=== PATIENT | male | born 1980 | race African-American/Black ===

== ENCOUNTER 2017-09-18 11:09 | Inpatient (IN) | payer SELFPAY ==
[~2017-09-18] VITALS: Ht 188 cm; Wt 94.3 kg
[2017-09-18 12:17] LABS: BASOPHILS % (AUTO) 0.7 % (0.0-5.0); EOSINOPHILS % (AUTO) 2.4 % (0.0-8.0); HEMATOCRIT 47.6 % (42-54); LYMPHOCYTES % (AUTO) 15.6 % (21.0-51.0); MEAN CORPUSCULAR HEMOGLOBIN 26.3 pg (27.0-33.0); MEAN CORPUSCULAR HGB CONC 32.6 g/dL (32.0-36.0); MEAN CORPUSCULAR VOLUME 80.6 fL (79-99); MONOCYTES % (AUTO) 7.3 % (3.0-13.0); PLATELET COUNT (AUTO) 226 K/uL (130-400); RED BLOOD CELL COUNT(AUTO) 5.91 MIL/uL (4.50-6.20); RED CELL DISTRIBUTION WIDTH 14.4 % (11.0-15.5); WHITE BLOOD COUNT (AUTO) 11.9 K/uL (4.8-10.8)
[2017-09-18 12:26] LABS: CREATININE 0.9 mg/dL (0.5-1.5); POTASSIUM 3.8 mmol/L (3.5-5.1)
[2017-09-18] MEDS ORDERED: HYOSCYAMINE SULFATE 0.125 MG TAB.SUBL SL ONE (12:26)
[2017-09-18] MEDS ORDERED: FAMOTIDINE/PF 20 MG/2 ML VIAL IV ONE (12:27)
[2017-09-18 12:48] LABS: ALBUMIN 3.1 g/dL (3.5-5.0); BILIRUBIN,TOTAL 0.3 mg/dL (0.2-1.0); TOTAL PROTEIN, SERUM 6.2 g/dL (6.0-8.3)
[2017-09-18 13:31] LABS: APPEARANCE,URINE CLEAR (CLEAR); BILIRUBIN,URINE NEGATIVE (NEGATIVE); COLOR,URINE YELLOW (YELLOW); GLUCOSE, URINE (UA) NEGATIVE (NEGATIVE); KETONES,URINE NEGATIVE (NEGATIVE); LEUKOCYTE ESTERASE ,URINE NEGATIVE (NEGATIVE); NITRATE,URINE NEGATIVE (NEGATIVE); OCCULT BLOOD,URINE NEGATIVE (NEGATIVE); PROTEIN,URINE NEGATIVE (NEGATIVE); UROBILINOGEN,URINE 0.2 mg/dL (0.2-1.0)
[2017-09-18 13:39] LABS: AMPHET/METH SCREEN,URINE NEGATIVE (NEGATIVE); BARBITURATE SCREEN, URINE NEGATIVE (NEGATIVE); BENZODIAZEPINES SCREEN,URINE POSITIVE (NEGATIVE); CANNABINOID SCREEN,URINE POSITIVE (NEGATIVE); COCAINE SCREEN,URINE NEGATIVE (NEGATIVE); OPIATE SCREEN,URINE NEGATIVE (NEGATIVE); PHENCYCLIDINE SCREEN,URINE NEGATIVE (NEGATIVE)
[2017-09-18] MEDS ORDERED: SODIUM CHLORIDE 0.9% 1000ML 1,000 ML IV ONE (14:30)
[2017-09-18] MEDS ORDERED: ACETAMINOPHEN EXTRA STRENGTH 500 MG TABLET PO PRN (15:45)
[2017-09-18] MEDS: SODIUM CHLORIDE 0.9% 1000ML 1,000 ML IV SCH ×2 (15:45→20:28)
[2017-09-18] MEDS ORDERED: ONDANSETRON HCL 4 MG/2 ML VIAL IVP PRN (15:45)
[2017-09-18] MEDS ORDERED: DESV50TA PO (16:08)
[2017-09-18] MEDS ORDERED: PALI9TAB PO (16:08)
[2017-09-18 16:19] VITALS: BP 126/86
[2017-09-18] MEDS ORDERED: TRAMADOL HCL 50 MG TABLET PO PRN (17:30)
[2017-09-18] MEDS ORDERED: FLU VACC QS2017-18 36MOS UP/PF 60 MCG/0.5 ML ML IM SCH (18:45)
[2017-09-18 19:43] VITALS: BP 121/73
[2017-09-18] MEDS: FAMOTIDINE 20MG TAB 20 MG TAB PO SCH (20:28)
[2017-09-18 23:06] VITALS: BP 109/68
[2017-09-19] MEDS ORDERED: HYDRALAZINE HCL 20 MG/ML VIAL IM PRN (00:45)
[2017-09-19] MEDS ORDERED: DIVA500T52 PO ×2 (03:09→03:15)
[2017-09-19] MEDS ORDERED: TRAZ-147 PO (03:15)
[2017-09-19] MEDS ORDERED: BENZ2TAB10 PO (03:17)
[2017-09-19] MEDS ORDERED: DESV50TA10 PO (03:18)
[2017-09-19] MEDS ORDERED: OLME1TAB7 PO (03:19)
[2017-09-19] MEDS ORDERED: PALI9TAB PO (03:21)
[2017-09-19 03:41] VITALS: BP 122/65
[2017-09-19] MEDS: SODIUM CHLORIDE 0.9% 1000ML 1,000 ML IV SCH (05:05)
[2017-09-19 06:13] LABS: MEAN CORPUSCULAR HEMOGLOBIN 26.9 pg (27.0-33.0); MEAN CORPUSCULAR HGB CONC 33.2 g/dL (32.0-36.0); PLATELET COUNT (AUTO) 209 K/uL (130-400); RED BLOOD CELL COUNT(AUTO) 5.06 MIL/uL (4.50-6.20); RED CELL DISTRIBUTION WIDTH 14.6 % (11.0-15.5); WHITE BLOOD COUNT (AUTO) 8.2 K/uL (4.8-10.8)
[2017-09-19 06:42] LABS: CREATININE 1.1 mg/dL (0.5-1.5); MAGNESIUM 1.8 mg/dL (1.80-2.40)
[2017-09-19 07:30] VITALS: BP 122/62
[2017-09-19 07:42] LABS: BASOPHILS % (MANUAL) 1 % (0-2); EOSINOPHILS % (MANUAL) 1 % (1-6); LYMPHOCYTES % (MANUAL) 23 % (22-44); MAN.DIFF COMMENT-IMPRESSION MANUAL DIFFERENTIAL; MONOCYTES % (MANUAL) 7 % (2-9); REACTIVE LYMPHOCYTES 4 % (0-0); SEGMENTED NEUTROPHILS % 64 % (40-70)
[2017-09-19 07:43] LABS: PLATELET MORPHOLOGY COMMENT ADEQUATE
[2017-09-19] MEDS: PALIPERIDONE 9 MG PO SCH (09:00)
[2017-09-19] MEDS: DESVENLAFAXINE SUCCINATE 50 MG PO SCH (09:00)
[2017-09-19] MEDS: FAMOTIDINE 20MG TAB 20 MG TAB PO SCH ×2 (09:30→20:56)
[2017-09-19 11:30] VITALS: BP 129/75
[2017-09-19] MEDS ORDERED: LACTULOSE 20 GM/30 ML UDCUP PO PRN (12:15)
[2017-09-19 15:30] VITALS: BP 129/75
[2017-09-19] MEDS: TRAZODONE HCL 100 MG TABLET PO SCH (17:56)
[2017-09-19 19:15] VITALS: BP 122/72
[2017-09-19] MEDS: BENZTROPINE MESYLATE 0.5 MG TAB PO SCH (20:56)
[2017-09-19 23:00] VITALS: BP 113/51
[2017-09-20] VITALS: BP 122/72
[2017-09-20 03:00] VITALS: BP 138/69
[2017-09-20] MEDS: SODIUM CHLORIDE 0.9% 1000ML 1,000 ML IV SCH ×5 (07:45→21:05)
[2017-09-20 08:28] LABS: ALBUMIN 2.8 g/dL (3.5-5.0); BILIRUBIN,TOTAL 0.4 mg/dL (0.2-1.0); CREATININE 1.2 mg/dL (0.5-1.5); TOTAL PROTEIN, SERUM 5.5 g/dL (6.0-8.3)
[2017-09-20] MEDS: DESVENLAFAXINE SUCCINATE 50 MG PO SCH (09:00)
[2017-09-20] MEDS: PALIPERIDONE 9 MG PO SCH (09:00)
[2017-09-20] MEDS: FAMOTIDINE 20MG TAB 20 MG TAB PO SCH ×2 (09:04→20:59)
[2017-09-20 09:16] VITALS: BP 115/71
[2017-09-20 11:00] VITALS: BP_SYST 115; BP_SYST 121; BP_DIAS 66; BP_DIAS 71
[2017-09-20 16:48] VITALS: BP 125/68
[2017-09-20] MEDS: TRAZODONE HCL 100 MG TABLET PO SCH (17:13)
[2017-09-20 20:00] VITALS: BP 122/74
[2017-09-20] MEDS: BENZTROPINE MESYLATE 0.5 MG TAB PO SCH (20:59)
[2017-09-21 04:00] VITALS: BP 123/70
[2017-09-21 07:00] VITALS: BP 126/69
[2017-09-21] MEDS: PALIPERIDONE 9 MG PO SCH (09:00)
[2017-09-21] MEDS: DESVENLAFAXINE SUCCINATE 50 MG PO SCH (09:00)
[2017-09-21] MEDS: SODIUM CHLORIDE 0.9% 1000ML 1,000 ML IV SCH ×2 (09:49→09:53)
[2017-09-21] MEDS: FAMOTIDINE 20MG TAB 20 MG TAB PO SCH (09:50)
[2017-09-21 12:00] VITALS: BP 126/88
[2017-09-21] MEDS: TRAZODONE HCL 100 MG TABLET PO SCH (17:00)
== END 2017-09-21 17:30 | disposition home or self-care (01) | DRG 558 ==
LOC: EDH 11:09 → EDHIP 11:10 → 4AH 15:46 → 3BH 18:03
PROVIDERS: ADMIT Family Medicine; ATTEND Family Medicine
PROC: 3E0234Z Introduction of Serum, Toxoid and Vaccine into Muscle, Percutaneous Approach (ICD-10-PCS; principal; 2017-09-18)
DX: M62.82 Rhabdomyolysis (principal); F20.0 Paranoid schizophrenia; R45.851 Suicidal ideations; F32.9 Major depressive disorder, single episode, unspecified; I10 Essential (primary) hypertension; G40.909 Epilepsy, unspecified, not intractable, without status epilepticus; F60.9 Personality disorder, unspecified; F12.10 Cannabis abuse, uncomplicated; Z23 Encounter for immunization
CPT/HCPCS: 36415; 71046; 74018; 80048; 80053; 80061; 80305; 81003; 82550; 83690; 83735; 84484; 85025; 93005; G0008; J3490; J7030; Q2038

== ENCOUNTER 2019-11-12 15:30 | Emergency (ER) | payer OTHER ==
[~2019-11-12 15:30] MED LIST: BENZ2TAB10 PO; DESV50TA PO; DIVA500T52 PO; OLME1TAB7 PO; PALI9TAB PO; TRAZ-187 PO
[2019-11-12] MEDS ORDERED: KETOROLAC TROMETHAMINE 60 MG/2 ML VIAL ONE (16:03)
[2019-11-12] MEDS ORDERED: TETANUS/DIPHTHERIA TOXOID [ADULT] 0.5 ML VIAL IM ONE (16:04)
== END 2019-11-12 16:36 | disposition home or self-care (01) ==
LOC: EDH 15:30
DX: S91.332A Puncture wound without foreign body, left foot, initial encounter (principal); I10 Essential (primary) hypertension; F32.9 Major depressive disorder, single episode, unspecified; F20.9 Schizophrenia, unspecified; Z72.0 Tobacco use; W26.8XXA Contact with other sharp object(s), not elsewhere classified, initial encounter; Y93.89 Activity, other specified; Y92.89 Other specified places as the place of occurrence of the external cause; Y99.8 Other external cause status
CPT/HCPCS: 73620; 90471; 90714; 96372; 99284; J1885

== ENCOUNTER 2020-03-04 07:38 | Inpatient (IN) | payer OTHER, SELFPAY ==
[~2020-03-04] VITALS: Ht 188 cm; Wt 95.3 kg
[2020-03-04 08:45] LABS: BASOPHILS % (AUTO) 0.2 % (0.0-5.0); EOSINOPHILS % (AUTO) 2.3 % (0.0-8.0); HEMATOCRIT 42.1 % (42-54); LYMPHOCYTES % (AUTO) 11.9 % (21.0-51.0); MEAN CORPUSCULAR HEMOGLOBIN 26.2 pg (27.0-33.0); MEAN CORPUSCULAR HGB CONC 32.3 g/dL (32.0-36.0); MEAN CORPUSCULAR VOLUME 81.1 fL (79-99); MONOCYTES % (AUTO) 9.7 % (3.0-13.0); NEUTROPHILS % (AUTO) 75.5 % (40.0-77.0); PLATELET COUNT (AUTO) 264 K/uL (130-400); RED BLOOD CELL COUNT(AUTO) 5.19 MIL/uL (4.50-6.20); RED CELL DISTRIBUTION WIDTH 13.5 % (11.0-15.5); WHITE BLOOD COUNT (AUTO) 9.7 K/uL (4.8-10.8)
[2020-03-04 09:08] LABS: ALBUMIN 3.8 g/dL (3.5-5.0); BILIRUBIN,TOTAL 0.7 mg/dL (0.2-1.0); CREATININE 0.9 mg/dL (0.5-1.5); INR 0.95 (0.85-1.15); PARTIAL THROMBOPLASTIN TIME 30.5 SEC (26.3-35.5); POTASSIUM 4.4 mmol/L (3.5-5.1); PROTHROMBIN TIME 10.3 SEC (9.6-11.6); TOTAL PROTEIN, SERUM 7.9 g/dL (6.0-8.3)
[2020-03-04 13:50] VITALS: BP 124/65
[2020-03-04] MEDS ORDERED: KETOROLAC TROMETHAMINE 15MG/ML IV SCH (14:30)
[2020-03-04] MEDS ORDERED: ONDANSETRON HCL 4 MG/2 ML VIAL IV PRN (14:45)
[2020-03-04] MEDS ORDERED: ACETAMINOPHEN 325 MG TAB PO PRN ×2 (14:45)
[2020-03-04] MEDS ORDERED: MORPHINE SULFATE 2 MG/ML 1ML SYG IV PRN (14:45)
[2020-03-04] MEDS ORDERED: PHARMACY COMMUNICATION MISC SCH (15:00)
[2020-03-04 15:37] LABS: HEMOGLOBIN A1C 5.9 % (4.0-6.0)
[2020-03-04 15:55] LABS: CHOLESTEROL 192 mg/dL (<200); HDL CHOLESTEROL 136 mg/dL (29-71); LDL DIRECT 109 mg/dL (0-99); MYOGLOBIN 99 ng/mL (10-92); TRIGLYCERIDES 47 mg/dL (30-200); TROPONIN I < 0.04 ng/mL (0.00-0.06)
[2020-03-04] MEDS ORDERED: DOXYCYCLINE 100MG+NS 250ML IV SCH (15:56)
[2020-03-04] MEDS ORDERED: ERGOCALCIFEROL (VITAMIN D2) 50,000 UNIT CAPSULE PO SCH (15:57)
[2020-03-04 15:58] LABS: CREATINE KINASE, TOTAL 785 U/L (21-232)
[2020-03-04] MEDS ORDERED: VASOPRESSIN 20 UNITS/NS 100ML IV SCH ×2 (16:30)
[2020-03-04] MEDS: ZINC SULFATE 220 CAPSULE PO SCH (16:49)
[2020-03-04] MEDS: ASCORBIC ACID 500 MG TAB PO SCH (16:50)
[2020-03-04 16:52] VITALS: BP 124/63
[2020-03-04] MEDS: METHYLPREDNISOLONE SOD SUCC 40MG/ML 1ML IVP SCH ×2 (16:54→21:40)
[2020-03-04] MEDS ORDERED: IOHEXOL-350 75 ML VIAL IV ONE ×2 (16:56→17:17)
[2020-03-04] MEDS: DOXYCYCLINE 100MG+NS 250ML 250 ML IV SCH (17:51)
[2020-03-04] MEDS: ENOXAPARIN SODIUM 40 MG/0.4 ML SYRINGE SQ SCH (17:57)
[2020-03-04 19:50] VITALS: BP 119/76
[2020-03-04] MEDS ORDERED: METOPROLOL TARTRATE 25 MG TAB PO SCH (21:00)
[2020-03-04] MEDS: FAMOTIDINE/PF 20 MG/2 ML VIAL IV SCH (21:41)
[2020-03-04] MEDS: BENZONATATE 100 MG CAPSULE PO SCH (21:41)
[2020-03-04] MEDS: ATORVASTATIN CALCIUM 10 MG TABLET PO SCH (21:41)
[2020-03-04 23:31] LABS: MYOGLOBIN 66 ng/mL (10-92); TROPONIN I < 0.04 ng/mL (0.00-0.06)
[2020-03-04 23:42] LABS: CREATINE KINASE, TOTAL 673 U/L (21-232)
[2020-03-04 23:49] VITALS: BP 136/78
[2020-03-05 04:05] VITALS: BP 116/79
[2020-03-05 08:04] LABS: ALBUMIN 3.3 g/dL (3.5-5.0); BILIRUBIN,TOTAL 0.4 mg/dL (0.2-1.0); CREATININE 0.9 mg/dL (0.5-1.5); CRP QUANTITATIVE 82.7 mg/L (0.00-9.0); TOTAL PROTEIN, SERUM 7.1 g/dL (6.0-8.3)
[2020-03-05 08:09] VITALS: BP 118/81
[2020-03-05 08:24] LABS: BASOPHILS % (AUTO) 0.2 % (0.0-5.0); EOSINOPHILS % (AUTO) 0.7 % (0.0-8.0); HEMATOCRIT 42.7 % (42-54); MEAN CORPUSCULAR HGB CONC 31.9 g/dL (32.0-36.0); MEAN CORPUSCULAR VOLUME 81.5 fL (79-99); MONOCYTES % (AUTO) 10.2 % (3.0-13.0); NEUTROPHILS % (AUTO) 75.6 % (40.0-77.0); PLATELET COUNT (AUTO) 267 K/uL (130-400); RED BLOOD CELL COUNT(AUTO) 5.24 MIL/uL (4.50-6.20); RED CELL DISTRIBUTION WIDTH 13.7 % (11.0-15.5); WHITE BLOOD COUNT (AUTO) 9.2 K/uL (4.8-10.8)
[2020-03-05 08:33] LABS: MYOGLOBIN 57 ng/mL (10-92); TROPONIN I < 0.04 ng/mL (0.00-0.06)
[2020-03-05 08:35] LABS: CREATINE KINASE, TOTAL 492 U/L (21-232)
[2020-03-05] MEDS: ZINC SULFATE 220 CAPSULE PO SCH (09:37)
[2020-03-05] MEDS: FAMOTIDINE/PF 20 MG/2 ML VIAL IV SCH ×2 (09:37→20:45)
[2020-03-05] MEDS: ENOXAPARIN SODIUM 40 MG/0.4 ML SYRINGE SQ SCH (09:37)
[2020-03-05] MEDS: ASCORBIC ACID 500 MG TAB PO SCH (09:37)
[2020-03-05] MEDS: BENZONATATE 100 MG CAPSULE PO SCH ×3 (09:37→20:46)
[2020-03-05] MEDS: METHYLPREDNISOLONE SOD SUCC 40MG/ML 1ML IVP SCH ×3 (09:37→20:46)
[2020-03-05 11:35] VITALS: BP 136/70
[2020-03-05] MEDS: DOXYCYCLINE 100MG+NS 250ML 250 ML IV SCH (15:55)
[2020-03-05 16:33] VITALS: BP 127/70
[2020-03-05 19:50] VITALS: BP 124/91
[2020-03-05] MEDS: ATORVASTATIN CALCIUM 10 MG TABLET PO SCH (20:46)
[2020-03-05 23:34] VITALS: BP 141/71
[2020-03-06] MEDS: DOXYCYCLINE 100MG+NS 250ML 250 ML IV SCH (03:35)
[2020-03-06 04:13] VITALS: BP 123/75
[2020-03-06 07:43] LABS: ALANINE AMINOTRANSFERASE 29 U/L (12-78); ALBUMIN 3.2 g/dL (3.5-5.0); ASPARTATE AMINOTRANSFERASE 18 U/L (10-37); BILIRUBIN,TOTAL 0.3 mg/dL (0.2-1.0); CARBON DIOXIDE 26 mmol/L (21-32); CHLORIDE 102 mmol/L (101-111); CREATININE 0.9 mg/dL (0.5-1.5); GLOMERULAR FILTR. RATE CALC 120 mL/min (>60); GLUCOSE,RANDOM 105 mg/dL (70-105); LACTATE DEHYDROGENASE 154 U/L (81-234); POTASSIUM 3.9 mmol/L (3.5-5.1); SODIUM SERUM 137 mmol/L (136-145); TOTAL PROTEIN, SERUM 7.3 g/dL (6.0-8.3); UREA NITROGEN, BLOOD 13 mg/dL (7-18)
[2020-03-06 08:26] VITALS: BP 108/69
[2020-03-06] MEDS: ZINC SULFATE 220 CAPSULE PO SCH (09:04)
[2020-03-06] MEDS: BENZONATATE 100 MG CAPSULE PO SCH ×2 (09:05→14:17)
[2020-03-06] MEDS: FAMOTIDINE/PF 20 MG/2 ML VIAL IV SCH (09:05)
[2020-03-06] MEDS: ASCORBIC ACID 500 MG TAB PO SCH (09:05)
[2020-03-06] MEDS: ENOXAPARIN SODIUM 40 MG/0.4 ML SYRINGE SQ SCH (09:05)
[2020-03-06] MEDS: METHYLPREDNISOLONE SOD SUCC 40MG/ML 1ML IVP SCH ×2 (09:05→14:16)
[2020-03-06 12:20] VITALS: BP 99/64
[2020-03-06] MEDS ORDERED: IBUP-2077 PO (12:39)
[2020-03-06] MEDS ORDERED: HYDR-4457 PO (12:39)
== END 2020-03-06 15:20 | disposition home or self-care (01) | DRG 314 ==
LOC: EDH 07:38 → EDHIP 07:39 → 3BH 14:41
PROVIDERS: ADMIT Hospitalist; ATTEND Hospitalist
DX: I30.9 Acute pericarditis, unspecified (principal); J18.9 Pneumonia, unspecified organism; F20.9 Schizophrenia, unspecified; I10 Essential (primary) hypertension; E11.9 Type 2 diabetes mellitus without complications; F17.210 Nicotine dependence, cigarettes, uncomplicated; F32.9 Major depressive disorder, single episode, unspecified; G40.909 Epilepsy, unspecified, not intractable, without status epilepticus; J45.909 Unspecified asthma, uncomplicated; Z20.828 Contact with and (suspected) exposure to other viral communicable diseases
CPT/HCPCS: 36415; 71045; 71275; 80053; 80061; 82550; 82728; 83036; 83615; 83874; 84145; 84484; 85025; 85378; 85610; 85730; 86140; 86850; 86900; 86901; 87426; 93005; 93306; 93356; G0378; J1650; J1885; J2920; J3490; Q9967; U0003

== ENCOUNTER 2020-07-26 12:58 | Emergency (ER) | payer SELFPAY ==
[~2020-07-26 12:58] MED LIST changes: -BENZ2TAB10 PO; -DESV50TA PO; -DIVA500T52 PO; +HYDR-4457 PO; +IBUP-2077 PO; -OLME1TAB7 PO; -PALI9TAB PO; -TRAZ-187 PO
[2020-07-26] MEDS ORDERED: LORAZEPAM 2 MG/ML 1 ML VIAL ONE (13:11)
[2020-07-26 13:21] LABS: BASOPHILS % (AUTO) 0.6 % (0.0-5.0); EOSINOPHILS % (AUTO) 5.9 % (0.0-8.0); HEMATOCRIT 43.1 % (42-54); LYMPHOCYTES % (AUTO) 30.7 % (21.0-51.0); MEAN CORPUSCULAR HEMOGLOBIN 26.5 pg (27.0-33.0); MEAN CORPUSCULAR HGB CONC 33.2 g/dL (32.0-36.0); MONOCYTES % (AUTO) 8.5 % (3.0-13.0); NEUTROPHILS % (AUTO) 54.1 % (40.0-77.0); PLATELET COUNT (AUTO) 306 K/uL (130-400); RED BLOOD CELL COUNT(AUTO) 5.39 MIL/uL (4.50-6.20); WHITE BLOOD COUNT (AUTO) 6.6 K/uL (4.8-10.8)
[2020-07-26 13:41] LABS: CREATININE 1.2 mg/dL (0.5-1.5); POTASSIUM 3.2 mmol/L (3.5-5.1)
[2020-07-26 13:45] LABS: ALBUMIN 3.8 g/dL (3.5-5.0); BILIRUBIN,TOTAL 0.4 mg/dL (0.2-1.0); TOTAL PROTEIN, SERUM 7.1 g/dL (6.0-8.3)
[2020-07-26] MEDS ORDERED: POTASSIUM BICARB/CIT AC 25 MEQ TABLET.EFF ONE (14:27)
== END 2020-07-26 14:48 | disposition home or self-care (01) ==
LOC: EDH 12:58
DX: F45.8 Other somatoform disorders (principal); F41.9 Anxiety disorder, unspecified; F32.9 Major depressive disorder, single episode, unspecified; Z72.0 Tobacco use
CPT/HCPCS: 36415; 71045; 80053; 84484; 85025; 93005; 96374; 99285; J2060

== ENCOUNTER 2020-08-08 11:33 | Emergency (ER) | payer OTHER ==
[2020-08-08 11:55] LABS: BASOPHILS % (AUTO) 0.7 % (0.0-5.0); EOSINOPHILS % (AUTO) 4.4 % (0.0-8.0); HEMATOCRIT 41.5 % (42-54); LYMPHOCYTES % (AUTO) 17.3 % (21.0-51.0); MEAN CORPUSCULAR HEMOGLOBIN 25.9 pg (27.0-33.0); MEAN CORPUSCULAR VOLUME 80.9 fL (79-99); MONOCYTES % (AUTO) 6.5 % (3.0-13.0); NEUTROPHILS % (AUTO) 70.7 % (40.0-77.0); PLATELET COUNT (AUTO) 277 K/uL (130-400); RED BLOOD CELL COUNT(AUTO) 5.13 MIL/uL (4.50-6.20); RED CELL DISTRIBUTION WIDTH 13.2 % (11.0-15.5); WHITE BLOOD COUNT (AUTO) 6.8 K/uL (4.8-10.8)
[2020-08-08 12:03] LABS: APPEARANCE,URINE Clear (CLEAR); BILIRUBIN,URINE Negative (NEGATIVE); COLOR,URINE Yellow (YELLOW); GLUCOSE, URINE (UA) Negative (NEGATIVE); KETONES,URINE Negative (NEGATIVE); LEUKOCYTE ESTERASE ,URINE Negative (NEGATIVE); NITRATE,URINE Negative (NEGATIVE); OCCULT BLOOD,URINE Trace (NEGATIVE); PROTEIN,URINE Trace mg/dL (NEGATIVE); UROBILINOGEN,URINE 0.2 mg/dL (0.2-1.0)
[2020-08-08 12:05] LABS: CARBON DIOXIDE 29 mmol/L (21-32); CHLORIDE 103 mmol/L (101-111); CREATININE 0.9 mg/dL (0.5-1.5); GLOMERULAR FILTR. RATE CALC 120 mL/min (>60); GLUCOSE,RANDOM 91 mg/dL (70-105); POTASSIUM 4.1 mmol/L (3.5-5.1); SODIUM SERUM 139 mmol/L (136-145); UREA NITROGEN, BLOOD 12 mg/dL (7-18)
[2020-08-08 12:09] LABS: ALANINE AMINOTRANSFERASE 28 U/L (12-78); ALCOHOL, BLOOD < 3 mg/dL (0-10); ASPARTATE AMINOTRANSFERASE 22 U/L (10-37); BILIRUBIN,TOTAL 0.2 mg/dL (0.2-1.0); SALICYLATE 3.9 mg/dL (2.8-20.0); TOTAL PROTEIN, SERUM 7.4 g/dL (6.0-8.3)
[2020-08-08 12:11] LABS: ACETAMINOPHEN < 1 mcg/mL (10-29)
[2020-08-08 12:11] LABS: AMPHET/METH SCREEN,URINE NEGATIVE (NEGATIVE); BARBITURATE SCREEN, URINE NEGATIVE (NEGATIVE); BENZODIAZEPINES SCREEN,URINE NEGATIVE (NEGATIVE); CANNABINOID SCREEN,URINE POSITIVE (NEGATIVE); COCAINE SCREEN,URINE NEGATIVE (NEGATIVE); OPIATE SCREEN,URINE NEGATIVE (NEGATIVE); PHENCYCLIDINE SCREEN,URINE NEGATIVE (NEGATIVE)
[2020-08-08 12:13] LABS: BACTERIA,URINE Few /HPF (None Seen); RBC,URINE 0-1 /HPF (0-1); WBC,URINE 0-1 /HPF (0-1)
== END 2020-08-08 17:22 | disposition home or self-care (01) ==
LOC: EDH 11:33
DX: R45.851 Suicidal ideations (principal); R45.850 Homicidal ideations; F41.9 Anxiety disorder, unspecified; F32.9 Major depressive disorder, single episode, unspecified
CPT/HCPCS: 36415; 80053; 80305; 81001; 85025; 99283; G0481

== ENCOUNTER 2021-09-22 15:05 | Emergency (ER) | payer OTHER ==
[~2021-09-22] VITALS: Ht 182.9 cm; Wt 90.7 kg
[2021-09-22 15:09] VITALS: BP 163/71
[2021-09-22 15:41] LABS: HEMATOCRIT 46.7 % (42-54); MEAN CORPUSCULAR HEMOGLOBIN 25.3 pg (27.0-33.0); MEAN CORPUSCULAR VOLUME 81.4 fL (79-99); PLATELET COUNT (AUTO) 308 K/uL (130-400); RED BLOOD CELL COUNT(AUTO) 5.74 MIL/uL (4.50-6.20); RED CELL DISTRIBUTION WIDTH 13.1 % (11.0-15.5); WHITE BLOOD COUNT (AUTO) 8.2 K/uL (4.8-10.8)
[2021-09-22 15:55] LABS: CARBON DIOXIDE 28 mmol/L (21-32); CHLORIDE 102 mmol/L (101-111); GLOMERULAR FILTR. RATE CALC 105 mL/min (>60); GLUCOSE,RANDOM 103 mg/dL (70-105); POTASSIUM 3.8 mmol/L (3.5-5.1); SODIUM SERUM 138 mmol/L (136-145); UREA NITROGEN, BLOOD 10 mg/dL (7-18)
[2021-09-22 15:59] LABS: ALANINE AMINOTRANSFERASE 25 U/L (12-78); ALBUMIN 3.9 g/dL (3.5-5.0); ALCOHOL, BLOOD < 3 mg/dL (0-10); ASPARTATE AMINOTRANSFERASE 16 U/L (10-37); BILIRUBIN,TOTAL 0.2 mg/dL (0.2-1.0); CREATINE KINASE, TOTAL 240 U/L (21-232); TOTAL PROTEIN, SERUM 7.9 g/dL (6.0-8.3)
[2021-09-22 16:03] LABS: ACETAMINOPHEN < 1 mcg/mL (10-29)
[2021-09-22 16:09] LABS: BAND NEUTROPHILS % (MANUAL) 3 % (0-2); EOSINOPHILS % (MANUAL) 3 % (1-6); LYMPHOCYTES % (MANUAL) 15 % (22-44); MONOCYTES % (MANUAL) 8 % (2-9); SEGMENTED NEUTROPHILS % 71 % (40-70)
[2021-09-22 16:10] LABS: MAN.DIFF COMMENT-IMPRESSION MANUAL DIFFERENTIAL; PLATELET MORPHOLOGY COMMENT ADEQUATE
[2021-09-22 17:32] LABS: APPEARANCE,URINE Clear (CLEAR); BILIRUBIN,URINE Negative (NEGATIVE); COLOR,URINE Yellow (YELLOW); GLUCOSE, URINE (UA) Negative (NEGATIVE); KETONES,URINE Trace mg/dL (NEGATIVE); LEUKOCYTE ESTERASE ,URINE Negative (NEGATIVE); NITRATE,URINE Negative (NEGATIVE); OCCULT BLOOD,URINE Negative (NEGATIVE); PROTEIN,URINE POS 1+ mg/dL (NEGATIVE)
[2021-09-22 17:40] LABS: AMPHET/METH SCREEN,URINE NEGATIVE (NEGATIVE); BARBITURATE SCREEN, URINE NEGATIVE (NEGATIVE); BENZODIAZEPINES SCREEN,URINE NEGATIVE (NEGATIVE); CANNABINOID SCREEN,URINE POSITIVE (NEGATIVE); COCAINE SCREEN,URINE POSITIVE (NEGATIVE); OPIATE SCREEN,URINE NEGATIVE (NEGATIVE); PHENCYCLIDINE SCREEN,URINE NEGATIVE (NEGATIVE)
[2021-09-22 18:14] LABS: BACTERIA,URINE Rare /HPF (None Seen); RBC,URINE 0-1 /HPF (0-1); SQUAMOUS EPITHELIAL CELL,UR None Seen /HPF (0-2); WBC,URINE None Seen /HPF (0-1)
== END 2021-09-22 21:55 | disposition home or self-care (01) ==
LOC: EEVIPCON 15:05 → EDH 15:05
DX: R45.851 Suicidal ideations (principal); R44.0 Auditory hallucinations; F31.9 Bipolar disorder, unspecified; Z79.899 Other long term (current) drug therapy
CPT/HCPCS: 36415; 80053; 80305; 81001; 82550; 85025; 87635; 99285; C9803; G0481